=== PATIENT | male | born 1960 | race Caucasian/White ===

== ENCOUNTER 2025-06-10 08:55 | Day surgery (SDC) | payer SELFPAY, OTHER ==
[2025-06-10] VITALS (9 sets, daily range): BP systolic 104–153; BP diastolic 58–80; PULSE 50–55; RESP 14–18; TEMP 36.2–36.3; O2SAT 97–100; BMI 32.4
--- NOTE | 2025-06-10 10:11 | HP.PCM_ITS ---
HPI - General General Date of Admission: 06/10/25 Date of Service: 06/10/25 Chief Complaint: bloating and change in bowel habits HPI Narrative AMENA SHAW, is a 65 M who presents [Chief Complaint: abdominal pain and bloating, screening Details: - seen in the office today with his Lynda - stomach issues over the past year and a change in bowel habits - someone in [place] is his provider - has been on protonix - awaiting results of labs - PRN prednisone for poison david - using Miralax frequently, stools are not formed - Meloxicam maybe once a month - no prednisone in the past year [facility] Medical History Leaky heart valve Abdominal distension Epigastric pain Home Medications ?Medication ?Instructions ?Recorded ?Last Taken ?Type meloxicam 15 mg tablet 15 mg PO QDAY PRN 04/28/25 U nknown History prednisone 20 mg tablet 40 mg PO QDAY PRN 04/28/25 U nknown History peg 3350-electrolytes 236 240 ml PO Q10M #4,000 mL Unknown Rx gram-22.74 gram-6.74 gram-5.86 gram solution (Golytely) Allergy/AdvReac Type Severity Reaction Status Date / Time No Known Allergies Allergy Verified 04/28/25 09:03 Family History Father CAD (coronary artery disease) Maternal Grandfather No problems noted. Surgical History History of cholecystectomy H/O left knee surgery H/O right knee surgery Social History Smoking Status: Never smoker ROS Constitutional Constitutional: Denies fatigue, fever(s), poor appetite, weight gain or weight loss Gastrointestinal Gastrointestinal: Denies belching, bloating, change in bowel habits, change in stool character, chewing difficulty, coffee ground emesis, constipation, cramping, diarrhea, dyspepsia, dysphagia, early satiety, excessive flatus, fecal incontinence, heartburn, hematemesis, hematochezia, hemorrhoids, loose stools, melena, nausea, odynophagia, rectal bleeding, tenesmus, vomiting or weight changes Physical Exam Const alert, oriented x3, no apparent distress and healthy appearing General Appearance: cooperative GI normal to inspection, nondistended, normoactive bowel sounds, soft to palpation, non-tender and non-distended Percussion: normal to percussion Rectal Exam: deferred Assessment & Plan Assessment/Plan (1) Indigestion: (2) Change in bowel habits: (3) Bloating: (4) Left sided abdominal pain: PLAN: Assessment and Plan Assessment and Plan (1) Left sided abdominal pain: Status: Acute (2) Bloating: Status: Acute (3) Change in bowel habits: Status: Acute (4) Indigestion: Status: Acute Medications: New peg 3350-electrolytes 236-22.74-6.74 -5.86 gram (Golytely) take as directed for split dose bowel prep 240 mL PO Q10M 4,000 mL 0RF Plan 65y/o male presents for initial consultation with complaints of abdominal pain, change in bowel habits, and bloating. He complains of lower esophageal dysphagia. He complains of left sided abdominal pain prior to a bowel movement. He denies any bleeding or weight loss. He reports he was prescribed Amoxicillin and high dose pantoprazole this past February without improvement in symptoms. He is uncertain what was being treated. He reports completion of H. pylori breath testing on 04/23/2025; results are not available for my review. He denies any heartburn but does endorse epigastric gas pressure, not always triggered by PO intake. He reports a change in bowel habits over the past 6 months. He is taking Miralax frequently to help with elimination of stools. I have scheduled him for bidirectional endoscopies and he will follow-up in the office post. Patient Instructions: Colon & EGD - Golytely Coding Level of Care Code Off vis,elizabeth,level 3 ]
[2025-06-10] MEDS: Lactated Ringers 1,000 ML 15 ML IV (10:59)
--- NOTE | 2025-06-10 11:16 | PCM.PRE.AN2 ---
ASA Classification* ASA Classification ASA Classification: 2 Assessment & Plan Anesthesia* Anesthesia Assessment Anesthesia Assessment: Discussed sedation and/or anesthesia options, risks, benefits, and alternatives with patient/parents/legal guardian/POA. Questions invited. The patient/parents/legal guardian/POA seems to understand and agrees to proceed with anesthesia plan. Reviewed the physical assessment, medical history, allergy history and patient home medications list prior to surgery/procedure/anesthetic and documented any changes. Performed airway and anesthesia risk assessments. 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 When Was Last Pacemaker Check QUESTION #4 FULL TEXT: You/Your Family Experience fever (hyperthermia) with Anesthesia Last Oral Intake Last Oral intake: Last Oral Intake NPO since 05:30 06/10/25 10:52 Meds taken in AM with sips of water? Meds patient instructed to take am of surgery PONV PONV - foreign exchange dealer: PONV - foreign exchange dealer Female No 06/10/25 10:41 HX of Motion Sickness No 06/10/25 10:41 HX of N/V After Surgery No 06/10/25 10:41 Non-Smoker No 06/10/25 10:41 Duration of Surgery greater No 06/10/25 10:41 than 60 minutes Number of Risk Factors PONV Score Height & Weight Height & Weight: Anesthesia: Height & Weight Height 5 ft 7 in 06/10/25 10:52 Weight: 94 kg 06/10/25 10:52 Body Mass Index (BMI) 32.4 06/10/25 10:52 Respiratory Assessment Respiratory Assessment - foreign exchange dealer: Respiratory Tract Infection Hx - foreign exchange dealer Hx Respiratory Tract Infection No 06/10/25 10:41 STOP Sleep Apnea STOP Sleep Apnea - foreign exchange dealer: STOP Sleep Apnea - foreign exchange dealer Hx Hypertension No 06/10/25 10:41 Hx Sleep Apnea No 06/10/25 10:41 CPAP BIPAP Do you snore loudly (louder No 06/10/25 10:41 than talking or can be heard Do you often feel tired/ Yes 06/10/25 10:41 fatigued/ sleepy during daytime? Has anyone observed you stop No 06/10/25 10:41 breathing during sleep? STOP Results Negative 06/10/25 10:41 QUESTION #5 FULL TEXT : Do you snore loudly (louder than talking or can be heard through closed doors)? 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 Specify any problems Hx of Preganancy in last 3 N/A 06/10/25 10:41 Months Nurse Filling Out Transfusion SASCHA 06/10/25 10:41 & Questions: Date: 06/10/25 06/10/25 10:41 Time: 10:50 06/10/25 10:41 Patient unable to answer at this time (ie. confused, unrespo /Reproduction History /Reproductive History - foreign exchange dealer: /Reproductive Hx- foreign exchange dealer Hx Now No 06/10/25 10:41 Gestational Age (in weeks): EDC: Hx Hx Para Hx Section SAB Active Medications Active Medications: Current Medications Generic Name Dose Route Start Last Admin Trade Name Freq PRN Reason Stop Dose Admin Lactated Ringer's 1,000 mls @ 15 mls/hr 06/10/25 10:30 06/10/25 10:59 IV 15 mls/hr .Q48H OLEGARIO Administration PFSH Medical History Wears glasses History of steroid therapy Heartburn Gastric reflux History of echocardiogram Leaky heart valve Abdominal distension Epigastric pain Home Medications ?Medication ?Instructions ?Recorded ?Last Taken ?Type meloxicam 15 mg tablet 15 mg PO QDAY PRN pain 04/28/25 Unknown History peg 3350-electrolytes 236 240 ml PO Q10M #4,000 mL 06/05/25 06/09/25 Rx gram-22.74 gram-6.74 gram-5.86 gram solution (Golytely) Allergy/AdvReac Type Severity Reaction Status Date / Time No Known Allergies Allergy Verified 06/10/25 10:38 Family History Father CAD (coronary artery disease) Maternal Grandfather No problems noted. Surgical History H/O left knee surgery H/O right knee surgery History of cholecystectomy Social History Smoking Status: Never smoker Addt'l Information Additional Findings: >4 METS Review of Systems (Anesthesia) ROS Narrative System reviewed and no additional complaints, except as documented. Physical Exam Const alert and oriented x3 Nutritional Appearance: obese Neck full ROM Resp normal respiratory effort and normal air movement Auscultation: clear to auscultation bilaterally Cardio regular rate and regular rhythm Back/Spine normal ROM Neuro oriented x3 and moves all extremities
--- NOTE | 2025-06-10 11:45 | COLBX_PTH ---
PATIENT: AMENA SHAW LOC: EN U#:[id number] AGE/SX: 65/M ROOM: RE06/10/[address]: Dr. Rosales Dennison DO : 1960 BED: DIS: 06/10/2025 SPEC #: [id number] RECD: 06/11/25 07:45 STATUS: MARK ROBERTO #: [id number] MARILY: 06/10/25 11:[address]: Rosales Dennison DEPT: SURGICAL PATHOLOGY RECD BY: Aquilino Dumont ENTERED: 06/11/25 09:55 SP TYPE: COLON BX OTHR DR: Royce Tobar PA-C Tissues: A - Duodenum, NOS B - Esophagus, NOS C - COLON BIOPSY Procedures: Surgery Specimen Level IV HEADER OPERATION: Colonoscopy with EGD and biopsy PRE-OP DIAGNOSIS: Indigestion, change in bowel habits, bloating, left sided abdominal pain TISSUE SUBMITTED: A- Duodenum biopsy, B- Distal esophagus biopsy, C- Random colon biopsy MICROSCOPIC DIAGNOSIS A. Duodenum, biopsy: * Small bowel mucosa with no pathologic change B. Distal esophagus, biopsy: * Benign squamous epithelium * Cardiac type mucosa with mild chronic inflammation and goblet cells, negative for dysplasia C. Colon, random biopsy: * Colonic mucosa with no pathologic change MICROSCOPIC DESCRIPTION Slides are reviewed. GROSS DESCRIPTION A. Received in fixative is one container labeled with the patient's name and designated Duodenum biopsy. The specimen consists of two irregular fragments of august tissue that measure 0.3 and 0.4 cm. The specimen is totally submitted in one cassette. B. Received in fixative is one container labeled with the patient's name and designated Distal esophagus biopsy. The specimen consists of three irregular fragments of august tissue that measure <0.1 to 0.4 cm. Smallest fragment unlikely to survive processing. The specimen is totally submitted in one cassette. C. Received in fixative is one container labeled with the patient's name and designated Random colon biopsy. The specimen consists of four irregular fragments of august tissue that measure 0.3 to 0.4 cm. The specimen is totally submitted in one cassette. OH 06/11/2025 CPT:18540x7
--- NOTE | 2025-06-10 12:19 | OP.PROVAT_ITS ---
06/10/2025 Royce Tobar Do Re : Upper GI endoscopy procedure for Bari Haro Dear Amadou This procedure was performed on Tuesday, June 10, 2025. My impressions and recommendations are as follows: Impressions : - LA Grade A reflux esophagitis with no bleeding. Biopsied. - Normal stomach. - Erythematous duodenopathy. Biopsied. Recommendations : - Discharge patient to home. - Resume previous diet. - Continue present medications. - Await pathology results. My findings are described in the full procedure note, which is enclosed. If I can be of further assistance, please feel free to contact me at . Sincerely, Rosales Dennison, 06/10/2025 12:18:36 PM This report has been signed electronically.
--- NOTE | 2025-06-10 12:19 | OP.EGD_ITS ---
Patient Name: Bari Haro Procedure Date: 06/10/2025 11:53 AM Date of : 1960 Age: 65 Procedure: Upper GI endoscopy Indications: Iron deficiency anemia Providers: Rosales Dennison DO Medicines: Monitored Anesthesia Care Patient Profile: This is a 65 year old male. Refer to note in patient chart for documentation of history and physical. Patient has symptoms. Complications: No immediate complications. Procedure: Pre-Anesthesia Assessment: - Prior to the procedure, a History and Physical was performed, and patient medications and allergies were reviewed. The patient is competent. The risks and benefits of the procedure and the sedation options and risks were discussed with the patient. All questions were answered and informed consent was obtained. Patient identification and proposed procedure were verified by the physician in the pre-procedure area. Mental Status Examination: alert and oriented. Airway Examination: normal oropharyngeal airway and neck mobility. Respiratory Examination: clear to auscultation. CV Examination: normal. Prophylactic Antibiotics: The patient does not require prophylactic antibiotics. Prior Anticoagulants: The patient has taken no anticoagulant or antiplatelet agents except for NSAID medication. ASA Grade Assessment: II - A patient with mild systemic disease. After reviewing the risks and benefits, the patient was deemed in satisfactory condition to undergo the procedure. The anesthesia plan was to use monitored anesthesia care (MAC). Immediately prior to administration of medications, the patient was re-assessed for adequacy to receive sedatives. The heart rate, respiratory rate, oxygen saturations, blood pressure, adequacy of pulmonary ventilation, and response to care were monitored throughout the procedure. The physical status of the patient was re-assessed after the procedure. After obtaining informed consent, the endoscope was passed under direct vision. Throughout the procedure, the patient's blood pressure, pulse, and oxygen saturations were monitored continuously. The colonoscope was introduced through the mouth, and advanced to the fourth part of the duodenum. Small bowel enteroscopy was deemed necessary. The upper GI endoscopy was accomplished with ease. The patient tolerated the procedure well. Scope In: 11:57:53 AM Scope Out: 12:01:09 PM Total Procedure Duration Time 0 hours 3 minutes 16 seconds Findings: LA Grade A (one or more mucosal breaks less than 5 mm, not extending between tops of 2 mucosal folds) esophagitis with no bleeding was found 38 to 40 cm from the incisors. Biopsies were taken with a cold forceps for histology. Verification of patient identification for the specimen was done. Estimated blood loss was minimal. The entire examined stomach was normal. Patchy mildly erythematous mucosa without active bleeding and with no stigmata of bleeding was found in the entire duodenum. Biopsies were taken with a cold forceps for histology. Verification of patient identification for the specimen was done. Estimated blood loss was minimal. Impression: - LA Grade A reflux esophagitis with no bleeding. Biopsied. - Normal stomach. - Erythematous duodenopathy. Biopsied. Recommendation: - Discharge patient to home. - Resume previous diet. - Continue present medications. - Await pathology results. Procedure Code(s): --- Professional --- 46860, Small intestinal endoscopy, enteroscopy beyond second portion of duodenum, not including ileum; with biopsy, single or multiple CPT copyright 2021 [employer]. All rights reserved. The codes documented in this report are preliminary and upon [employer] review may be revised to meet current compliance requirements. Rosales Dennison DO 06/10/2025 12:18:36 PM This report has been signed electronically. Number of Addenda: 0 Note Initiated On: 06/10/2025 11:53 AM
--- NOTE | 2025-06-10 12:22 | PCM.POST.ANE ---
Anesthesia: Postop Eval I Current Vital Signs Temperature: 97.4 F Pulse Rate: 55 Blood Pressure: 104/60 Respiratory Rate: 16 Pulse Ox: 99 Oxygen Delivery Method: Room Air Assessment Airway patent: Yes Spontaneous unlabored respirations: Yes Mental status: Asleep nausea: No Vomiting: No Anesthesia Complication: No Fluid Hydration Crystalloid volume administer (ml): 800 Total IV fluid infused: 800 Progress Note Anesthesia document: Postop Eval 1 completed: Yes
--- NOTE | 2025-06-10 12:24 | OP.PROVAT_ITS ---
06/10/2025 Royce Tobar Do Re : Colonoscopy procedure for Bari Haro Dear Amadou This procedure was performed on Tuesday, June 10, 2025. My impressions and recommendations are as follows: Impressions : - Diverticulosis in the recto-sigmoid colon and in the sigmoid colon. - Congested mucosa in the sigmoid colon, in the transverse colon, at the hepatic flexure and in the ascending colon. Biopsied. - The examined portion of the ileum was normal. Recommendations : - Discharge patient to home. - Resume previous diet. - Continue present medications. - Await pathology results. - Repeat colonoscopy in 5 years for surveillance. My findings are described in the full procedure note, which is enclosed. If I can be of further assistance, please feel free to contact me at . Sincerely, Rosales Dennison, 06/10/2025 12:23:45 PM This report has been signed electronically.
--- NOTE | 2025-06-10 12:24 | OP.COLON_ITS ---
Patient Name: Bari Haro Procedure Date: 06/10/2025 12:01 PM Date of : 1960 Age: 65 Procedure: Colonoscopy Indications: Clinically significant diarrhea of unexplained origin, Iron deficiency anemia Providers: Rosales Dennison DO Medicines: Monitored Anesthesia Care Patient Profile: This is a 65 year old male. Refer to note in patient chart for documentation of history and physical. Patient has symptoms. Last Colonoscopy: several years ago. Complications: No immediate complications. Procedure: Pre-Anesthesia Assessment: - Prior to the procedure, a History and Physical was performed, and patient medications and allergies were reviewed. The patient is competent. The risks and benefits of the procedure and the sedation options and risks were discussed with the patient. All questions were answered and informed consent was obtained. Patient identification and proposed procedure were verified by the physician in the pre-procedure area. Mental Status Examination: alert and oriented. Airway Examination: normal oropharyngeal airway and neck mobility. Respiratory Examination: clear to auscultation. CV Examination: normal. Prophylactic Antibiotics: The patient does not require prophylactic antibiotics. Prior Anticoagulants: The patient has taken no anticoagulant or antiplatelet agents except for NSAID medication. ASA Grade Assessment: II - A patient with mild systemic disease. After reviewing the risks and benefits, the patient was deemed in satisfactory condition to undergo the procedure. The anesthesia plan was to use monitored anesthesia care (MAC). Immediately prior to administration of medications, the patient was re-assessed for adequacy to receive sedatives. The heart rate, respiratory rate, oxygen saturations, blood pressure, adequacy of pulmonary ventilation, and response to care were monitored throughout the procedure. The physical status of the patient was re-assessed after the procedure. After I obtained informed consent, the scope was passed under direct vision. Throughout the procedure, the patient's blood pressure, pulse, and oxygen saturations were monitored continuously. The colonoscope was introduced through the anus and advanced to the terminal ileum, with identification of the appendiceal orifice and IC valve. The colonoscopy was performed without difficulty. The patient tolerated the procedure well. The quality of the bowel preparation was adequate. The terminal ileum, ileocecal valve, appendiceal orifice, and rectum were photographed. Scope In: 12:02:06 PM Scope Withdrawal Time 0 hours 7 minutes 33 seconds Scope Out: 12:11:38 PM Total Procedure Duration Time 0 hours 9 minutes 32 seconds Findings: The perianal and digital rectal examinations were normal. A few small-mouthed diverticula were found in the recto-sigmoid colon and sigmoid colon. An area of mildly congested mucosa was found in the sigmoid colon, in the transverse colon, at the hepatic flexure and in the ascending colon. Biopsies were taken with a cold forceps for histology. Verification of patient identification for the specimen was done. Estimated blood loss was minimal. The freedom-terminal ileum appeared normal. Impression: - Diverticulosis in the recto-sigmoid colon and in the sigmoid colon. - Congested mucosa in the sigmoid colon, in the transverse colon, at the hepatic flexure and in the ascending colon. Biopsied. - The examined portion of the ileum was normal. Recommendation: - Discharge patient to home. - Resume previous diet. - Continue present medications. - Await pathology results. - Repeat colonoscopy in 5 years for surveillance. Procedure Code(s): --- Professional --- 87950, Colonoscopy, flexible; with biopsy, single or multiple CPT copyright 2021 [employer]. All rights reserved. The codes documented in this report are preliminary and upon director employment review may be revised to meet current compliance requirements. Rosales Dennison DO 06/10/2025 12:23:45 PM This report has been signed electronically. Number of Addenda: 0 Note Initiated On: 06/10/2025 12:01 PM
--- NOTE | 2025-06-10 15:10 | PCM.POSTANE2 ---
Anesthesia Postop Eval I Sum Postop Eval Completion status Anesthesia document: Postop Eval 1 completed: Yes Anesthesia Postop Eval I Summary Anesthesia Postop Eval I Summary: Anesthesia Postop Eval I: Assessment Summary Airway patent Yes 06/10/25 12:23 [email or web address] Spontaneous unlabored Yes 06/10/25 12:23 [email or web address] respirations Mental status Asleep 06/10/25 12:23 [email or web address] nausea No 06/10/25 12:23 [email or web address] Vomiting No 06/10/25 12:23 [email or web address] Anesthesia Postop Eval I: Fluid Summary Crystalloid volume administer 800 06/10/25 12:23 [email or web address] (ml) Colloids volume administered ( ml) Blood Product volume administered (ml) Total IV fluid infused 800 06/10/25 12:23 [email or web address] Anesthesia Postop Eval I: Summary Notes Anesthesia Complication No 06/10/25 12:23 [email or web address] Anesthesia Complication Comment: Post-operative progress note Anesthesia: Postop Eval II Evaluation Mental status: Awake and Calm Pain Level: 0 nausea: No Vomiting: No Complications Anesthesia Complication: No
== END 2025-06-10 13:06 | disposition home or self-care (01) ==
LOC: EN 09:08 → AC 09:08
PROVIDERS: PCP Physician Assistant; Referring Provider Physician Assistant; Visit Provider Internal Medicine Gastroenterology
PROC: 0DJD8ZZ Inspection of Lower Intestinal Tract, Via Natural or Artificial Opening Endoscopic (ICD-10-PCS; CPT 45378; principal; 2025-06-10 11:40)
DX: R14.0 Abdominal distension (gaseous) (principal); D50.9 Iron deficiency anemia, unspecified; K57.30 Diverticulosis of large intestine without perforation or abscess without bleeding; R19.7 Diarrhea, unspecified; K63.89 Other specified diseases of intestine; K21.00 Gastro-esophageal reflux disease with esophagitis, without bleeding; Z90.49 Acquired absence of other specified parts of digestive tract; K30 Functional dyspepsia; R19.4 Change in bowel habit; R10.9 Unspecified abdominal pain; K31.89 Other diseases of stomach and duodenum
CPT/HCPCS: 44361; 45380; 88305; J2405